=== PATIENT | male | born 1970 | race Two or more races ===

== ENCOUNTER 2024-09-12 19:38 | Emergency (ER) | payer OTHER ==
[~2024-09-12] VITALS: Ht 167.6 cm; Wt 73.0 kg
[2024-09-12] MEDS ORDERED: AUGMENTIN XR 11 EACH PO (21:00)
== END 2024-09-12 21:10 | disposition home or self-care (01) ==
LOC: ER 19:40
DX: S91.122A Laceration with foreign body of left great toe without damage to nail, initial encounter (principal); W45.0XXA Nail entering through skin, initial encounter; Y93.89 Activity, other specified; Y92.89 Other specified places as the place of occurrence of the external cause